=== PATIENT | male | born 1990 | race Caucasian/White ===

== ENCOUNTER 2017-07-03 12:53 | Emergency (ER) | payer BC ==
[~2017-07-03] VITALS: Ht 170.1 cm; Wt 63.5 kg
[~2017-07-03 12:53] MED LIST: ANAPROX DS550 MG PO; MOTRIN800 MG PO
[2017-07-03 13:03] VITALS: BP 126/60
[2017-07-03] MEDS ORDERED: Motrin,Rufen800 MG PO (15:04)
== END 2017-07-03 15:11 | disposition home or self-care (01) ==
LOC: ED 12:53
DX: S52.592A Other fractures of lower end of left radius, initial encounter for closed fracture (principal); S70.02XA Contusion of left hip, initial encounter; F17.200 Nicotine dependence, unspecified, uncomplicated; Z88.0 Allergy status to penicillin; W10.8XXA Fall (on) (from) other stairs and steps, initial encounter; Y93.89 Activity, other specified; Y92.009 Unspecified place in unspecified non-institutional (private) residence as the place of occurrence of the external cause; Y99.9 Unspecified external cause status

== ENCOUNTER 2019-05-15 01:02 | Emergency (ER) | payer BC ==
[~2019-05-15] VITALS: Ht 172.7 cm; Wt 63.5 kg
[~2019-05-15 01:02] MED LIST changes: +Motrin,Rufen800 MG PO
[2019-05-15 01:04] VITALS: BP 133/65
[2019-05-15] MEDS ORDERED: CEPHALEXIN500 M1 PO (02:33)
== END 2019-05-15 02:50 | disposition home or self-care (01) ==
LOC: ED 01:02
DX: S61.011A Laceration without foreign body of right thumb without damage to nail, initial encounter (principal); S61.210A Laceration without foreign body of right index finger without damage to nail, initial encounter; S61.214A Laceration without foreign body of right ring finger without damage to nail, initial encounter; S61.216A Laceration without foreign body of right little finger without damage to nail, initial encounter; Z88.0 Allergy status to penicillin; Z79.899 Other long term (current) drug therapy; V89.2XXA Person injured in unspecified motor-vehicle accident, traffic, initial encounter; Y93.I9 Activity, other involving external motion; Y92.488 Other paved roadways as the place of occurrence of the external cause; Y99.8 Other external cause status

== ENCOUNTER 2019-09-29 21:33 | Emergency (ER) | payer BC ==
[~2019-09-29] VITALS: Wt 65.8 kg
[~2019-09-29 21:33] MED LIST changes: +CEPHALEXIN500 M1 PO
[2019-09-29 21:57] VITALS: BP 126/71
== END 2019-09-29 23:47 | disposition home or self-care (01) ==
LOC: ED 21:33
DX: T15.92XA Foreign body on external eye, part unspecified, left eye, initial encounter (principal); Z88.0 Allergy status to penicillin; Z79.899 Other long term (current) drug therapy; X58.XXXA Exposure to other specified factors, initial encounter; Y93.89 Activity, other specified; Y92.89 Other specified places as the place of occurrence of the external cause; Y99.8 Other external cause status

== ENCOUNTER 2020-09-26 11:44 | Emergency (ER) | payer BC ==
[~2020-09-26] VITALS: Ht 170.1 cm; Wt 61.2 kg
[2020-09-26 12:30] LABS: BASO % 0.3 % (0.0-1.0); EOS % 0.6 % (1.0-4.0); HEMATOCRIT 41.4 % (42.0-52.0); LYMPH # 1.4 10*3/uL (1.3-4.4); LYMPH % 20.1 % (27.0-41.0); MEAN CELL VOLUME 91.4 fl (80.0-94.0); MEAN PLATELET VOLUME 10.2 fl (9.6-12.3); MONO # 0.5 10*3/uL (0.1-1.0); MONO % 7.6 % (3.0-9.0); NEUT % 71.1 % (47.0-73.0); PLATELET COUNT AUTOMATED 195 10*3/uL (130-400); RED BLOOD COUNT 4.53 10*6/uL (4.50-5.90)
[2020-09-26 12:47] LABS: ALBUMIN 4.4 gm/dl (3.1-4.5); ALKALINE PHOSPHATASE 78 U/L (45-117); BUN 9 mg/dl (7-24); CHLORIDE 104 mmol/L (98-107); LIPASE 36 U/L (73-393); POTASSIUM 4.1 mmol/L (3.5-5.1); SGOT/AST 15 IU/L (3-35); SGPT/ALT 21 U/L (12-78); SODIUM 136 mmol/L (136-145); TOTAL PROTEIN 7.8 gm/dL (6.4-8.2)
[2020-09-26 12:48] LABS: TROPONIN I < 0.015 ng/ml (<0.045)
[2020-09-26 13:04] VITALS: BP 121/75
== END 2020-09-26 14:30 | disposition home or self-care (01) ==
LOC: ED 11:44
PROVIDERS: Physician Assistant
DX: R07.89 Other chest pain (principal); Z79.899 Other long term (current) drug therapy

== ENCOUNTER 2022-12-22 14:10 | Emergency (ER) | payer OTHER, BC ==
[2022-12-22] MEDS ORDERED: VIBRAMYCIN100 MG PO (14:32)
[2022-12-22 14:40] VITALS: BP 124/67
== END 2022-12-22 14:43 | disposition home or self-care (01) ==
LOC: ED 14:10
DX: S01.311A Laceration without foreign body of right ear, initial encounter (principal); Z88.0 Allergy status to penicillin; Z79.2 Long term (current) use of antibiotics; Z79.899 Other long term (current) drug therapy; V89.2XXA Person injured in unspecified motor-vehicle accident, traffic, initial encounter; Y93.I9 Activity, other involving external motion; Y92.488 Other paved roadways as the place of occurrence of the external cause; Y99.8 Other external cause status